=== PATIENT | male | born 1980 | race African-American/Black ===

== ENCOUNTER → 2019-03-19 | Outpatient (CLI) | payer OTHER ==
--- NOTE | 2019-03-20 08:20 | REP ---
Clinical: Nonacute pain related to old injury of the . Technique: AP, lateral, bilateral oblique, and coned-down views. Findings: Alignment and lordosis is maintained. The vertebral bodies including transverse process and spinous processes are intact and normal. There is no evidence for acute fracture / compression injury or subluxation. No evidence for spondylolysis or spondylolisthesis. No significant degenerative change is noted. Impression: Normal lumbosacral spine radiograph series. Electronically Signed by Haider Dubose MD 03/20/2019 08:12 A
== END ==
LOC: M RAD 09:10
PROVIDERS: ATTEND Surgery
DX: M54.5 Low back pain (principal)